=== PATIENT | female | born 1970 | race African-American/Black ===

== ENCOUNTER 2022-04-12 12:17 | Outpatient (CLI) | payer OTHER, SELFPAY ==
--- NOTE | ~2022-04-12 | DEXA_ITS ---
Bone Density Report Name: JONI ALEGRE Age: 51 Sex: Female Ethnicity: Black Date of : 1970 Indication: postmenopausal; screening for osteoporosis; Referring Provider: ARNAUD SHIPMAN Study: Bone densitometry was performed. Exam Date: April 12, 2022 Accession number: [id number] Bone Density: Region BMD T-score Z-score Classification AP Spine (L1, L2, L3) 1.152 1.2 1.3 Normal Femoral Neck (Left) 0.946 0.9 0.6 Normal Total Hip (Left) 1.085 1.2 0.8 Normal Femoral Neck (Right) 0.902 0.5 0.3 Normal Total Hip (Right) 1.024 0.7 0.4 Normal Total Hip Mean 1.055 1.0 0.6 Normal World Health Organization criteria for BMD impression classify patients as: Normal (T-score at or above -1.0), Osteopenia (T-score between -1.0 and -2.5), or Osteoporosis (T-score at or below -2.5). 10-year Fracture Risk: FRAX not reported because: All T-scores for Spine Total, Hip Total, Femoral Neck at or above -1.0 Clinical Information Provided by Patient: Patient maximum height was 63.63 Menopause Age: 49 No regular weight bearing exercise Drinks caffeinated beverages Onset of menses at age 12.5 Number of children 2 Impression: The patient has normal bone mass. Discussion: BONE DENSITY IS ABOVE THE MINIMUM DESIRABLE LEVEL AT ALL SKELETAL SITES TESTED. This patient?s bone mineral density is above the minimum desirable level (T-score -1.0 or better) at all sites measured. The patient should follow a healthful lifestyle (good nutrition with adequate calcium and vitamin D, and appropriate weight-bearing exercise). Follow-Up: Consider repeating this study in 5 years or sooner if there is some new clinical indication. Reported by: MYRA on 04/12/2022 12:59:00 PM. Reviewed, dictated and finalized at location A. [facility]
--- NOTE | ~2022-04-12 | MM_ITS ---
EXAMINATION: MM screening jordi BI w manisha HISTORY: Screening mammogram TECHNIQUE: Craniocaudal and mediolateral oblique 3-D tomosynthesis images were obtained and synthetic 2-D images were generated. CAD analysis was submitted and interpreted. COMPARISON: No prior mammogram is available for comparison at this institution. BREAST PARENCHYMAL COMPOSITION: There are scattered areas of fibroglandular density. FINDINGS: There is an approximately 6 mm mass mid depth in the inner mid right breast. Diagnostic rig ht mammogram and right breast ultrasound examination are recommended. Otherwise no suspicious mass, architectural distortion, malignant calcification, skin thickening or r etraction of either breast is detected. IMPRESSION: 1. 6 mm inner mid right breast mass 2. Diagnostic right mammogram and right breast ultrasound examination are recommended BI-RADS Category 0: Incomplete: Needs additional imaging evaluation. Reviewed, dictated and finalized at location A. [employer] IMPRESSION: 1. 6 mm inner mid right breast mass 2. Diagnostic right mammogram and right breast ultrasound examination are recom mended BI-RADS Category 0: Incomplete: Needs additional imaging evaluation.
== END 2022-04-12 12:18 ==
PROVIDERS: PCP Obstetrics & Gynecology Gynecology; Visit Provider Obstetrics & Gynecology Gynecology
DX: Z12.31 Encounter for screening mammogram for malignant neoplasm of breast (principal); Z78.0 Asymptomatic menopausal state; R92.8 Other abnormal and inconclusive findings on diagnostic imaging of breast
CPT/HCPCS: 77063; 77067; 77080

== ENCOUNTER → 2022-05-10 09:20 | Outpatient (CLI) | payer OTHER, SELFPAY ==
--- NOTE | ~2022-05-10 | MMUS_ITS ---
EXAMINATION: MM diagnostic jordi RT w manisha, US breast RT complete HISTORY: Follow-up right breast mass TECHNIQUE: Additional 3-D tomosynthesis images of the right breast were performed and synthetic 2-D i mages were generated. CAD analysis was submitted and interpreted. High resolution complete right she[address] st ultrasound was performed. COMPARISON: Comparison to multiple prior studies sequentially, with oldest reviewed study dated 07/2017. BREAST PARENCHYMAL COMPOSITION: Breast composed of scattered areas of fibroglandular density FINDINGS: MAMMOGRAPHIC FINDINGS: There is a microlobulated mass in the lower inner quadrant of the right breast. No suspicious calcifi cations or architectural distortion. ULTRASOUND: Complete US of all 4 quadrants of the right breast and retroareolar region was reviewed. There is a c luster of microcysts at 2:00, 5 cm from the nipple measuring 8 mm in aggregate, corresponding to the mammographic finding. No suspicious sonographic masses to suggest malignancy. IMPRESSION: 1. No evidence for malignancy in the right breast. Benign findings. 2. Routine yearly screening mammogram and regular clinical breast examination are recommended. BI-RADS Category 2: Benign finding(s). Reviewed, dictated and finalized at location A. IMPRESSION: 1. No evidence for malignancy in the right breast. Benign findings. 2. Routine yearly screening mammogram and regular clinical breast examination a re recommended. BI-RADS Category 2: Benign finding(s).
== END ==
PROVIDERS: PCP Obstetrics & Gynecology Gynecology; Visit Provider Obstetrics & Gynecology Gynecology
DX: N63.10 Unspecified lump in the right breast, unspecified quadrant (principal)
CPT/HCPCS: 76641; 77061; 77065; G0279

== ENCOUNTER 2023-05-14 11:14 | Outpatient (CLI) | payer OTHER, SELFPAY ==
--- NOTE | ~2023-05-14 | MM_ITS ---
EXAMINATION: MM screening jordi BI w manisha HISTORY: Screening mammogram TECHNIQUE: Craniocaudal and mediolateral oblique 3-D tomosynthesis images were obtained and synthetic 2-D images were generated. CAD analysis was submitted and interpreted. COMPARISON: 05/10/2022 diagnostic right mammogram and complete right breast ultrasound 04/12/2022, 09/24/2017 bilateral screening mammogram examinations BREAST PARENCHYMAL COMPOSITION: There are scattered areas of fibroglandular density. FINDINGS: There is an irregular 9 mm mass in the inner mid right breast. Diagnostic right mammogram a nd right breast ultrasound examination are recommended. 5 mm circumscribed mass in the central right breast 3 cm deep to the nipple. 4.5 mm low-density circumscribed mass is noted posterior inner mid left breast (craniocaudal Tomosynt hesis image 42/84). IMPRESSION: 1. Bilateral mammographic masses 2. Bilateral diagnostic mammography and breast ultrasound examination are recommended BI-RADS Category 0: Incomplete: Needs additional imaging evaluation. Reviewed, dictated and finalized at location A. IMPRESSION: 1. Bilateral mammographic masses 2. Bilateral diagnostic mammography and breast ultrasound examination are recom mended BI-RADS Category 0: Incomplete: Needs additional imaging evaluation.
== END 2023-05-14 11:15 ==
LOC: MICIMG 11:15
PROVIDERS: PCP Obstetrics & Gynecology Gynecology; Visit Provider Obstetrics & Gynecology Gynecology
DX: Z12.31 Encounter for screening mammogram for malignant neoplasm of breast (principal); R92.8 Other abnormal and inconclusive findings on diagnostic imaging of breast
CPT/HCPCS: 77063; 77067

== ENCOUNTER 2023-06-18 08:48 | Outpatient (CLI) | payer OTHER, SELFPAY ==
--- NOTE | ~2023-06-18 | MMUS_ITS ---
EXAMINATION: MM diagnostic jordi BI w manisha, US breast BI complete HISTORY: Bilateral mammographic masses reported on 05/14/2023 screening mammogram: Irregular 9 mm mass in the inner mid right breast and 5 mm circumscribed mass central right breast 3 cm deep to the nipple 4.5 mm circumscribed mass in posterior inner mid left breast TECHNIQUE: Additional 3-D tomosynthesis images of both breasts were performed and synthetic 2-D image s were generated. CAD analysis was submitted and interpreted. High resolution complete bilateral shemar st ultrasound examination clinical 4 quadrants and subareolar areas was performed. COMPARISON: 05/14/2023 bilateral screening mammogram FINDINGS: MAMMOGRAPHIC FINDINGS: Irregular approximately 7 x 4 mm opacity is noted at mid depth in the intermediate right breast (cran iocaudal, tomosynthesis spot compression image 34/63; coned compression right ML tomosynthesis image 56/77). No suspicious mass of either breast is noted otherwise. ULTRASOUND: Right breast: 2:00 4 cm from nipple: Circumscribed irregular oval 4 x 5.8 x 7.2 mm hypoechoic lesion without commercial internship al vascularity or posterior shadowing. Because of the irregular margins, ultrasound-guided biopsy is recommended 8:00 subareolar area: 4 x 5.6 x 5.2 mm circumscribed sonolucency without internal vascularity or post erior shadowing, consistent with benign cyst Left breast: No suspicious mass or shadowing is detected. IMPRESSION: 1. Irregular hypoechoic 4 x 5.8 x 7.2 mm lesion of right breast at 2:00 4 cm from nipple 2. Ultrasound-guided biopsy right breast 2:00 lesion is recommended BI-RADS category 4, suspicious findings. Dr. Plaza telephoned the report and ultrasound guided biopsy recommendation of right breast 2:00 lesio n on 06/18/2023 at 1016 hours to Jami Mcarthur M.A. Reviewed, dictated and finalized at location A. IMPRESSION: 1. Irregular hypoechoic 4 x 5.8 x 7.2 mm lesion of right breast at 2:00 4 cm fr om nipple 2. Ultrasound-guided biopsy right breast 2:00 lesion is recommended BI-RADS category 4, suspicious findings. Dr. Plaza telephoned the report and ultrasound guided biopsy recommendation of r ight breast 2:00 lesion on 06/18/2023 at 1016 hours to Jami Mcarthur M.A.
== END 2023-06-18 08:49 ==
PROVIDERS: PCP Obstetrics & Gynecology Gynecology; Visit Provider Obstetrics & Gynecology Gynecology
DX: R92.8 Other abnormal and inconclusive findings on diagnostic imaging of breast (principal)
CPT/HCPCS: 76641; 77062; 77066; G0279